=== PATIENT | female | born 1935 | race Caucasian/White ===

== ENCOUNTER 2018-12-05 07:59 | Inpatient (IN) | payer OTHER | END 2018-12-07 14:20 | disposition home or self-care (01) | LOC: ER 07:59 → TELE 13:03 → TELE-WESTW 13:57 | DX: A41.9 Sepsis, unspecified organism (principal); N39.0 Urinary tract infection, site not specified; I70.0 Atherosclerosis of aorta; J44.9 Chronic obstructive pulmonary disease, unspecified; E11.51 Type 2 diabetes mellitus with diabetic peripheral angiopathy without gangrene; E78.5 Hyperlipidemia, unspecified; I11.0 Hypertensive heart disease with heart failure; I50.9 Heart failure, unspecified ==